=== PATIENT | male | born 2000 | race African-American/Black ===

== ENCOUNTER 2018-10-18 09:24 | Emergency (ER) | payer SELFPAY ==
[~2018-10-18] VITALS: Ht 180.3 cm; Wt 73.0 kg
[2018-10-18 11:06] VITALS: BP 122/74
[2018-10-18] MEDS ORDERED: IBUPROFEN 600MG TABLET PO ONE (11:15)
== END 2018-10-18 11:37 | disposition left against medical advice (07) ==
LOC: ER 09:40
DX: S99.922A Unspecified injury of left foot, initial encounter (principal); W22.8XXA Striking against or struck by other objects, initial encounter; Y93.89 Activity, other specified; Y92.89 Other specified places as the place of occurrence of the external cause; Z53.29 Procedure and treatment not carried out because of patient's decision for other reasons
CPT/HCPCS: 99283

== ENCOUNTER 2018-10-18 13:04 | Emergency (ER) | payer SELFPAY ==
[~2018-10-18] VITALS: Ht 167.6 cm; Wt 53.0 kg
[2018-10-18] MEDS ORDERED: HYDROCODONE/ACETAMINOPHEN 5/325MG TABLET PO ONE (14:30)
[2018-10-18] MEDS ORDERED: LIDOCAINE HCL 1% 20ML VIAL (Pyxis) INJ INFIL ONE (15:30)
[2018-10-18 16:35] VITALS: BP 130/60
== END 2018-10-18 16:51 | disposition home or self-care (01) ==
LOC: ER 13:25
DX: S92.512A Displaced fracture of proximal phalanx of left lesser toe(s), initial encounter for closed fracture (principal); Y93.89 Activity, other specified; Y92.89 Other specified places as the place of occurrence of the external cause; Z72.0 Tobacco use; F12.90 Cannabis use, unspecified, uncomplicated
CPT/HCPCS: 73660; 99284; J3490; Z7610